=== PATIENT | male | born 1975 | race Caucasian/White ===

== ENCOUNTER 2017-07-02 11:32 | Observation (INO) | payer MEDICAID, OTHER ==
[2017-07-02 11:41] VITALS: RESP 18
--- NOTE | 2017-07-02 11:43 | CPEKG ---
Heart Rate: 77 RR Interval: 779 P-R Interval: 188 QRSD Interval: 88 QT Interval: 380 QTC Interval: 431 P [place]: 45 QRS [place]: 6 T Wave [place]: 28 EKG Severity - NORMAL ECG - EKG Impression: SINUS RHYTHM Electronically Signed By: Juan Sousa 05-Jul-2017 16:09:22
[2017-07-02 11:44] VITALS: O2SAT 96
[2017-07-02 11:47] LABS: % IMMATURE GRANULYOCYTES 0.2 % (0.0-1.1); ABSOLUTE IMMATURE GRANULOCYTES 0.02 10^3/uL (0.00-0.10); ADD DIFF? NO; ADD MORPH? NO; ADD SCAN? NO; ATYPICAL LYMPHOCYTE FLAG 10 (0-99); FRAGMENT RBC FLAG 0 (0-99); HEMATOCRIT 44.6 % (40.0-51.0); HEMOGLOBIN 15.3 g/dL (13.7-17.5); LEFT SHIFT FLG 0 (0-99); LIPEMIA HEMOLYSIS FLAG 90 (0-99); MEAN CELL HEMOGLOBIN 29.8 pg (27.9-34.1); MEAN CELL HEMOGLOBIN CONCENTR. 34.3 g/dL (32.4-36.7); MEAN CELL VOLUME 86.8 fL (81.5-99.8); MEAN PLATELET VOLUME 10.1 fL (8.7-11.7); PLATELET CLUMPS FLAG 30 (0-99); PLATELET COUNT 237 10^3/uL (150-400); RED BLOOD CELL COUNT 5.14 10^6/uL (4.40-6.38); RED CELL DISTRIBUTION WIDTH 13.1 % (11.5-15.2)
[2017-07-02 12:03] LABS: ANION GAP 11 mEq/L (8-16); CALCIUM 9.6 mg/dL (8.5-10.4); CARBON DIOXIDE 23 mEq/l (22-31); CHLORIDE 107 mEq/L (97-110); CREATININE 1.1 mg/dL (0.7-1.3); ETHANOL SERUM < 10 mg/dL (0-10); GLOMERULAR FILTRATION RATE > 60; GLUCOSE 88 mg/dL (70-100); POTASSIUM 4.1 mEq/L (3.5-5.2); SODIUM 141 mEq/L (134-144)
--- NOTE | 2017-07-02 12:09 | EDPHY ---
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 approximately 1 hour prior to arrival. This pain progressed as he was ambulatory, or felt slightly better if he rested. Started to experience dizziness, near-syncope and had to sit down. Subsequently ambulance was called. He is also complaining of dyspnea. At time of my evaluation he has by enlarged asymptomatic. Was given aspirin en route via ems. PRIMARY CARE PROVIDER:no primary care provider REVIEW OF SYSTEMS: A ten point review of systems was performed and is negative with the exception of the items mentioned in the HPI PAST MEDICAL & SURGICAL HISTORY: No pertinent medical or surgical history SOCIAL HISTORY: Daily smoker. No cocaine use. FAMILY HISTORY: Mother and father both with 1st MA in their 40s PHYSICAL EXAM (Prior to examination, patient consented to physical exam, hands were washed and my usual and customary physical exam procedures followed) 1) GENERAL: Well-developed, well-nourished, alert and oriented. Appears anxious 2) HEAD: Normocephalic, atraumatic 3) HEENT: Pupils equal, round, reactive to light bilaterally. Sclera anicteric. 4) NECK: Full range of motion, no bruit . 5) LUNGS: Clear auscultation bilaterally, no wheezes, no rhonchi, no retractions. 6) HEART: Regular rate and rhythm, no murmur, no heave, no gallop. 7) ABDOMEN: No guarding, no rebound, no focal tenderness, negative McBurney's, negative Young's, negative Rovsing's, negative peritoneal sign, 8) MUSCULOSKELETAL: Moving all extremities, no focal areas of tenderness, no obvious trauma. No peripheral edema or discoloration. Negative Homans no palpable cord 9) BACK: No CVA tenderness, no midline vertebral tenderness, no fluctuance, no step-off, no obvious trauma, no visual or palpable abnormality. 10) SKIN: No rash, no petechiae. 11) Psychiatric: Patient is oriented X 3, there is no agitation. DIFFERENTIAL DIAGNOSIS: In no particular order, including but not limited to myocardial ischemia, pulmonary embolus, chest wall pain, pleural inflammation and pulmonary infectious causes. - Personal History Current Tetanus/Diphtheria Vaccine: Yes - Medical/Surgical History Hx Asthma: No Hx Chronic Respiratory Disease: No Hx Diabetes: No Hx Cardiac Disease: No Hx Renal Disease: No Hx Cirrhosis: No Hx Alcoholism: No Hx HIV/AIDS: No Hx Splenectomy or Spleen Trauma: No Other PMH: no PMH - Social History Smoking Status: Heavy smoker Constitutional: Initial Vital Signs Temperature (C) 36.9 C 07/02/17 11:37 Heart Rate 74 07/02/17 11:37 Respiratory Rate 18 07/02/17 11:37 Blood Pressure 120/84 H 07/02/17 11:37 O2 Sat (%) 98 07/02/17 11:37 O2 Delivery Mode Room Air Allergies/Adverse Reactions: No Known Allergies Allergy (Unverified 07/02/17 11:44) Home Medications: Medication Instructions Recorded NK [No Known Home Meds] 07/02/17 Medical Decision Making - Diagnostics Imaging Results: Imaging Impressions Chest X-Ray 07/02/17 11:37 Impression: 1. No active cardiopulmonary disease seen. 2. Mild scoliosis. Images reviewed myself ED Course/Re-evaluation: 12:10 p.m.: Discussed case with secondary supervising physician Dr. Wing in the ER. Patient is normal sinus rhythm EKG, negative troponin, negative D- dimer. I am concerned about this patient's family history of 1st MA in their 40s, his complaints of midsternal chest pain and right arm pain. Recommend admission for further cardiac workup. Patient is agreeable with this. 12:22 p.m.: Phone consultation with hospitalistRossy, admit to PCU Dr. John Erwin - Data Points Laboratory Results: Laboratory Results 07/02/17 11:10 07/02/17 11:10 07/02/17 07/02/17 07/02/17 11:10 11:10 11:10 WBC 8.85 10^3/uL 10^3/uL (3.80-9.50) RBC 5.14 10^6/uL 10^6/uL (4.40-6.38) Hgb 15.3 g/dL g/dL (13.7-17.5) Hct 44.6 % % (40.0-51.0) MCV 86.8 fL fL (81.5-99.8) MCH 29.8 pg pg (27.9-34.1) MCHC 34.3 g/dL g/dL (32.4-36.7) RDW 13.1 % % (11.5-15.2) Plt Count 237 10^3/uL 10^3/uL (150-400) MPV 10.1 fL fL (8.7-11.7) Neut % (Auto) 63.2 % % (39.3-74.2) Lymph % (Auto) 29.2 % % (15.0-45.0) Ma[place] % (Auto) 5.3 % % (4.5-13.0) Eos % (Auto) 1.6 % % (0.6-7.6) Baso % (Auto) 0.5 % % (0.3-1.7) Nucleat RBC Rel Count 0.0 % % (0.0-0.2) Absolute Neuts (auto) 5.60 10^3/uL 10^3/uL (1.70-6.50) Absolute Lymphs (auto) 2.58 10^3/uL 10^3/uL (1.00-3.00) Absolute Monos (auto) 0.47 10^3/uL 10^3/uL (0.30-0.80) Absolute Eos (auto) 0.14 10^3/uL 10^3/uL (0.03-0.40) Absolute Basos (auto) 0.04 10^3/uL 10^3/uL (0.02-0.10) Absolute Nucleated RBC 0.00 10^3/uL 10^3/uL (0-0.01) Immature Gran % 0.2 % % (0.0-1.1) Immature Gran # 0.02 10^3/uL 10^3/uL (0.00-0.10) D-Dimer 0.28 ug/mLFEU ug/mLFEU (0.00-0.50) Sodium 141 mEq/L mEq/L (134-144) Potassium 4.1 mEq/L mEq/L (3.5-5.2) Chloride 107 mEq/L mEq/L (97-110) Carbon Dioxide 23 mEq/l mEq/l (22-31) Anion Gap 11 mEq/L mEq/L (8-16) BUN 12 mg/dL mg/dL (7-23) Creatinine 1.1 mg/dL mg/dL (0.7-1.3) Estimated GFR > 60 Glucose 88 mg/dL mg/dL (70-100) Calcium 9.6 mg/dL mg/dL (8.5-10.4) Troponin I < 0.012 ng/mL ng/mL (0.000-0.034) Ethyl Alcohol < 10 mg/dL mg/dL (0-10) Departure - Departure Disposition: [facility] Inpatient Acute Clinical Impression: Chest pain Qualifiers: Chest pain type: unspecified Qualified Code(s): R07.9 - Chest pain, unspecified Condition: Fair Referrals: Patient,NotPresent [Primary Care Provider] - As per Instructions
[2017-07-02 12:14] LABS: TROPONIN I < 0.012 ng/mL (0.000-0.034)
[2017-07-02 12:34] VITALS: BP 109/95; PULSE 74; TEMP 97.9
--- NOTE | 2017-07-02 14:21 | GHP ---
[f rep st] HISTORY AND PHYSICAL DATE OF ADMISSION: 07/02/2017 HISTORY AND PHYSICAL AND DISCHARGE SUMMARY HISTORY OF PRESENT ILLNESS: The patient is a 41-year-old gentleman with family history of coronary disease and longstanding smoking history. Had exertional arm pain and chest pain today. 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 He was walking and he felt some left arm pain and some heartb urn-like symptoms. He felt diaphoretic and lightheaded. He sat down and symptoms resolved. He has never had previous symptoms, he has not had heart failure symptoms. He has not had fever, chills, nausea, vomiting, diarrhea. He presented to the emergency department where he had normal troponin, normal chest x-ray, normal EKG. When I see the patient, he is up on the floor. He wishes to leave. REVIEW OF SYSTEMS: Complete 10-point review of systems conducted, negative except as noted in the H PI. PAST MEDICAL HISTORY: Smoking use. FAMILY HISTORY: Noted for coronary disease. SOCIAL HISTORY: Tobacco use as in the HPI. Works at a car dealership. . ALLERGIES: No known drug allergies. HOME MEDICATIONS: None. PHYSICAL EXAMINATION: VITAL SIGNS: Temp 36.9, blood pressure 128/84, pulse 74, breathing 18 times a minute, 98% on room air. GENERAL: In no acute distress. ENT: Sclerae anicteric. Oropharynx cl ear. Mucous membranes moist. NECK: Supple without lymphadenopathy or JVD. EXTREMITIES: There is no lower extremity edema. Calves nontender. SKIN: Without rash. NEUROLOGIC: Exam is nonfocal. LABORATORY DATA: White count 8, hematocrit 45, platelets 237,000. D-dimer is normal. Chem-7 tony l. Troponin less than 0.012. Alcohol level is normal. EKG interpreted by me shows sinus at 77 wit h normal axis and intervals. There are no ST or T-wave changes. No prior for comparison. Chest x- ray shows no acute cardiopulmonary disease. ASSESSMENT/PLAN: A 41-year-old gentleman with concerning story for angina. Angina. This patient warrants risk stratification. I discussed this for at least 15 minutes with serge mac, and he is adamant he is leaving against medical advice, so he is in fact leaving. I advised him to quit smoking, to take an aspirin. /[id number]/MODL
== END 2017-07-02 13:40 | disposition left against medical advice (07) ==
LOC: EDUNIT# → F2W 12:59
PROVIDERS: ADMIT Internal Medicine; ATTEND Internal Medicine
DX: R07.9 Chest pain, unspecified (principal); Z82.49 Family history of ischemic heart disease and other diseases of the circulatory system; F17.210 Nicotine dependence, cigarettes, uncomplicated
CPT/HCPCS: G0480